=== PATIENT | female | born 1960 | race Caucasian/White ===

== ENCOUNTER 2021-02-25 12:48 | Observation (INO) | payer OTHER, SELFPAY ==
[2021-02-25] VITALS (19 sets, daily range): BP systolic 107–137; BP diastolic 58–77; PULSE 70–110; RESP 18–27; TEMP 36.1–37.8; O2SAT 96–100; BMI 24.9
--- NOTE | ~2021-02-25 | CT_ITS ---
EXAMINATION: CT abdomen pelvis wo con DATE: 02/25/2021 17:37 INDICATION: Right flank pain. TECHNIQUE: Computed tomography (CT) of the abdomen and pelvis was performed without intravenous contr ast. Automated exposure control and iterative reconstruction technique were employed. The dose-length product was 178.55 mGy-cm. COMPARISON: CT abdomen and pelvis 10/10/2018 FINDINGS: The visualized portions of the lung bases demonstrate mild atelectasis. No pleural effusion . The heart size is normal. No pericardial effusion. The liver, gallbladder, spleen, pancreas, and ad renal glands are normal. There are peripelvic cysts in the kidneys measuring up to 12 mm on the right . There is no urolithiasis. There are no dilated loops of bowel. The appendix is not visualized. Ther e are no pathologically enlarged lymph nodes. There is no free intraperitoneal fluid. 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 There is 4 mm anterolisthesis of L5 on S1. There is severe lower lumbar spondylosis. IMPRESSION: 1. No urolithiasis. Reviewed, dictated and finalized at location A. IMPRESSION: 1. No urolithiasis.
--- NOTE | ~2021-02-25 | XR_ITS ---
EXAMINATION: XR chest 1V portable DATE: 02/25/2021 19:13 INDICATION: Fever. Left lower back pain. TECHNIQUE: A single frontal view of the chest was obtained. COMPARISON: Chest 2 views 05/21/2013, CT abdomen and pelvis 02/25/2021 FINDINGS: The chest demonstrates clear lungs without pneumonia, pleural effusion, or pneumothorax. Th e heart size is normal. IMPRESSION: 1. No acute cardiopulmonary disease. Reviewed, dictated and finalized at location A.
[2021-02-25 13:26] LABS: Hematocrit 43.4 % (37.0-47.0); Hemoglobin 14.7 g/dL (12.0-15.0); Mean Corpuscular HGB Conc 33.9 g/dl (32-36); Mean Corpuscular Hemoglobin 28.3 pg (26-34); Mean Corpuscular Volume 83.6 fl (80-100); Mean Platelet Volume 10.2 fl (7.4-10.4); Platelet Count Result 231 k/mm3 (150-375); Red Blood Count 5.19 M/mm3 (4.2-5.4); Red Cell Distribution Width 12.8 % (11.5-14.5); White Blood Count 13.5 K/mm3 (4.5-10.0)
[2021-02-25 13:38] LABS: Alanine Aminotransferase 22 U/L (4-35); Albumin Level 4.6 g/dL (3.5-5.1); Alkaline Phosphatase 69 U/L (38-126); Anion Gap 15 mmol/L (8-16); Aspartate Amino Transferase 22 U/L (14-36); Bilirubin,Total 0.8 mg/dL (0.2-1.3); Blood Urea Nitrogen 13 mg/dL (7-17); Calcium 9.5 mg/dL (8.4-10.2); Carbon Dioxide 22 mmol/L (22-30); Chloride 96 mmol/L (98-107); Estimated CRCL calculation 52 ml/min; Estimated Glomerular Filt Rate > 60; Glucose 267 mg/dL (65-110); Lipase 42 U/L (23-300); Sodium 133 mmol/L (137-145)
[2021-02-25 14:03] LABS: Lymphocytes Absolute Manual 0.81 K/mm3 (1.1-4.5); Monocytes Absolute Manual 0.54 K/mm3 (0.1-0.90); Monocytes Percent Manual 4 % (3-9); Neutrophils Percent Manual 90 % (46-73); Platelet Estimate Adequate (Adequate); Total Cells Counted 100
[2021-02-25] MEDS: SODIUM CHLORIDE 0.9% IV 1,000 ML 999 ML IV CONT ×2 (14:49→18:02)
[2021-02-25 15:02] LABS: Add Urine Microscopic? YES; Appearance Urine Clear (Clear); Bilirubin Urine Negative (Negative); Blood Urine 1+ (Negative); Color Urine Yellow (Yellow); Glucose Urine UA 2+ mg/dL (Negative); Ketones Urine 1+ mg/dL (Negative); Leukocyte Esterase Ur 1+ LEU/UL (Negative); Mucus Urine Rare /lpf; Nitrate Urine Negative (Negative); Protein Urine Negative (Negative); Specific Grav Ur 1.021 (1.001-1.035); Squamous Epithelial Cell Urine Rare /hpf (Few); Urobilinogen Urine Negative mg/dL (<2.0)
[2021-02-25 16:23] LABS: EDCOVIDSCREEN Negative (Negative)
--- NOTE | 2021-02-25 17:33 | ED.GENADULT ---
HPI - General Adult General Chief complaint: Nausea/Vomiting/Diarrhea <Jacquie Sena PA-C - Last Filed: 02/25/21 20:07> Stated complaint: DOE/Weakness <Jacquie Sena PA-C - Last Filed: 02/25/21 20:07> Time Seen by Provider: 02/25/21 14:00 <COURTNEY Mason Last Filed: 02/25/21 20:07> Source: patient <COURTNEY Mason Last Filed: 02/25/21 20:07> Mode of arrival: ambulatory <COURTNEY Mason Last Filed: 02/25/21 20:07> Limitations: no limitations <COURTNEY Mason Last Filed: 02/25/21 20:07> History of Present Illness HPI narrative: Patient with diabetes presents with chief complaint of fatigue, nausea, vomiting abdominal pain that began this morning. Patient states she did not eat or drink anything that she can recall caused her symptoms. Patient states that she checked her blood sugar levels and it was 200. Patient states she has been drinking lots of water. Patient denies any fever, chills, cough, shortness of breath, chest pain. Patient denies being exposed to a known Covid positive person. <COURTNEY Mason Last Filed: 02/25/21 20:07> Related Data Home medications: Home Medications Medication Instructions Recorded Confirmed Januvia 100 mg PO DAILY 02/25/21 02/25/21 Lantus Solostar U-100 Insulin 18 unit SUBCUT 02/25/21 02/25/21 interferon beta-1a 30 mcg IM WEEKLY 02/25/21 02/25/21 lansoprazole 30 mg PO DAILY 02/25/21 02/25/21 simvastatin 40 mg PO HS 02/25/21 02/25/21 <COURTNEY Mason Last Filed: 02/25/21 20:07> Allergies/adverse reactions: Allergies Allergy/AdvReac Type Severity Reaction Status Date / Time mannitol [From Reclast] Allergy Severe Swelling Verified 02/25/21 22:16 water for injection,sterile Allergy Severe Swelling Verified 02/25/21 22:16 [From Reclast] zoledronic acid Allergy Severe Swelling Verified 02/25/21 22:16 [From Reclast] Penicillins Allergy Intermediate Rash Verified 02/25/21 22:16 <Jacquie Sena PA-C - Last Filed: 02/25/21 20:07> Review of Systems Review of Systems: CONSTITUTIONAL: Reports fatigue denies body aches, fever, chills, or sweats. EYES: Denies visual changes, redness, or discharge. ENT: Denies rhinorrhea, congestion, sore throat, or otalgia. CARDIOVASCULAR: Denies chest pain, palpitations, or edema. RESPIRATORY: Denies cough or dyspnea. GASTROINTESTINAL: Reports abdominal pain, nausea, vomiting, denies diarrhea. GENITOURINARY: Reports urinary frequency denies dysuria or hematuria. SKIN: Denies rash or itching. MUSCULOSKELETAL: Denies back pain, joint pain, or myalgia. NEUROLOGIC: Denies headache, numbness, dizziness, or weakness. PSYCHIATRIC: Denies anxiety or depression. <Jacquie Sena PA-C - Last Filed: 02/25/21 20:07> [facility]LY [facility], LAT[facility] Social History Social History: Social History Smoking status: Former smoker Alcohol intake: never Substance use: never Spiritual care concerns: No <Jacquie Sena PA-C - Last Filed: 02/25/21 20:07> Course Vital Signs Vital signs: Vital Signs Temperature 97.9 F 02/25/21 12:56 Pulse Rate 96 02/25/21 12:56 Respiratory Rate 18 02/25/21 12:56 Blood Pressure 120/62 02/25/21 12:56 Pulse Oximetry 96 02/25/21 12:56 Temperature 98.3 F 02/27/21 12:00 Pulse Rate 88 02/27/21 12:00 Respiratory Rate 16 02/27/21 12:00 Blood Pressure 114/59 L 02/27/21 12:00 Pulse Oximetry 97 02/27/21 12:00 <Jacquie Sena PA-C - Last Filed: 02/25/21 20:07> Vital Signs Temperature 97.9 F 02/25/21 12:56 Pulse Rate 96 02/25/21 12:56 Respiratory Rate 18 02/25/21 12:56 Blood Pressure 120/62 02/25/21 12:56 Pulse Oximetry 96 02/25/21 12:56 Temperature 98.3 F 02/27/21 12:00 Pulse Rate 88 02/27/21 12:00 Respiratory Rate 16 02/27/21 12:00 Blood Pressure 114/59 L 02/27/21 12:00 Pulse Oximetry 97 02/27/21 12:00 <Renu Clemens MD - Last Filed: 02/28/21 01:12>
[2021-02-25] MEDS: KETOROLAC 30 MG/ML VIAL (*BKC) IV PUSH (18:11)
--- NOTE | 2021-02-25 21:06 | PC.NURSE ---
This patient, Sita Chao, was admitted to [facility] Room 330-01 @21:05. Patient/family oriented to hospital policies and general routines including ID bracelet, bed and alarms, visiting hours, pain management, procedures, bathroom and other care routines, personal items, smoking policy, room service/diet, and visiting hours. Information on how to activate the Rapid Response Team has been discussed. Patient/Family are encouraged to report perceived risks to care and to ask questions if they do not understand what they are told or what they should do.
--- NOTE | 2021-02-25 21:24 | PC.NURSE ---
20:53 Report received from IZZY Carbone RN. Awaiting patient arrival to floor.
[2021-02-26] VITALS: BP 109/63; PULSE 86; RESP 18; TEMP 36.2; O2SAT 98
--- NOTE | 2021-02-26 00:19 | PM.IMHP ---
H&P: HPI History of Present Illness Date/Time: 02/26/21 00:19 Chief Complaint: Nausea and vomiting Narrative: This is a 60-year-old female with past medical history significant for insulin-dependent diabetic mellitus, GERD, dyslipidemia, former smoker. Patient presented today to the emergency room due to nausea vomiting abdominal pain unable to keep anything down feeling very weak and fatigued. Her sugars have been in the 200 range. Everything started today in the morning and she called EMS due to having nausea and vomiting not been able to eat and her sugars been in the 200's. She denies any fevers rigors chills pain or burning with urination no cough no sputum production no syncope or near syncope. Preliminary workup was significant for sodium of 132 chloride of 90, a urinalysis shows some WBCs of note patient had been taking nitrofurantoin at home, a CT of abdomen and pelvis did not show any acute abnormality. Patient has been placed in observation. Review of Systems Review of Systems: Patient presented to the emergency room due to nausea vomiting abdominal pain sugars in the 200s not been able to eat. Constitutional: Constitutional: Denies chills, Reports fatigue, Denies fever(s), Reports lethargy, Denies malaise, Reports poor appetite and Reports weakness Eyes: Eyes: Denies change in vision ENT: Denies dysphagia, Denies vertigo, Denies dizziness, Denies mouth pain, Denies nasal congestion, Denies nasal discharge, Denies nasal obstruction and Denies odynophagia Cardiovascular: Cardiovascular: Denies irregular heart rhythm, Denies lightheadedness, Denies radiating jaw, neck or arm pain, Denies palpitations and Denies dyspnea on exertion Respiratory: Respiratory: Denies cough and Denies dyspnea Gastrointestinal: Gastrointestinal: Reports abdominal pain, Denies dyspepsia, Denies heartburn, Reports nausea and Reports vomiting Genitourinary: Genitourinary: Reports no additional female genitourinary complaints Musculoskeletal: Musculoskeletal: Reports no additional musculoskeletal complaints Integumentary/Breasts: Skin/Breast: Reports system reviewed and no additional complaints, except as docu Neurologic: Reports system reviewed and no additional complaints, except as documented Psychiatric: Psychiatric: Reports no additional psychiatric complaints Endocrine: Comments: Uncontrolled sugars Hematologic/Lymphatic: Hematologic/Lymphatic: Reports no additional hematologic/lymphatic complaints Allergic/Immunologic: Allergic/Immunologic: Reports no additional allergic/immunologic complaints FORMERLY [facility] Social History Social History Smoking status: Former smoker Alcohol intake: never Substance use: never Spiritual care concerns: No Meds Home Medications and Allergies Home Medications Medication Instructions Recorded Confirmed Type insulin glargine [Lantus Solostar 18 unit SUBCUT HS 02/25/21 02/25/21 History U-100 Insulin] interferon beta-1a 30 mcg IM WEEKLY 02/25/21 02/25/21 History lansoprazole 30 mg PO DAILY 02/25/21 02/25/21 History nitrofurantoin monohyd/m-cryst 100 mg PO BID 02/25/21 02/25/21 History simvastatin 40 mg PO HS 02/25/21 02/25/21 History sitagliptin [Januvia] 100 mg PO DAILY 02/25/21 02/25/21 History Allergies Allergy/AdvReac Type Severity Reaction Status Date / Time mannitol [From Reclast] Allergy Severe Swelling Verified 02/25/21 22:16 water for injection,sterile Allergy Severe Swelling Verified 02/25/21 22:16 [From Reclast] zoledronic acid Allergy Severe Swelling Verified 02/25/21 22:16 [From Reclast] Penicillins Allergy Intermediate Rash Verified 02/25/21 22:16 Vital Signs Vital Signs - 24 hr 02/25/21 12:56 02/25/21 13:57 02/25/21 15:31 Temperature 97.9 F 98.8 F Pulse Rate 96 108 H 106 H Respiratory Rate 18 18 24 H Blood Pressure 120/62 133/77 130/68 Pulse Oximetry 96 100 100 02/25/21 15:46 02/25/21 15:48 02/25/21 15:50 Temperature Pulse Rate 104 H 105 H 1
[2021-02-26] MEDS: INSULIN GLARGINE (*BKC) 100 UNITS/ML 18 UNITS SUB-Q ×2 (01:21→20:18)
[2021-02-26] MEDS: SIMVASTATIN 20 MG TABLET 40 MG PO ×2 (01:21→20:19)
[2021-02-26 01:25] LABS: Glucose Point of Care 269 mg/dl (65-105)
[2021-02-26 04:00] VITALS: BP 116/66; PULSE 97; RESP 18; TEMP 36.6; O2SAT 99
[2021-02-26] MEDS: ENOXAPARIN 40 MG/0.4 ML SYRINGE SUB-Q (09:00)
[2021-02-26] MEDS: NITROFURANTOIN MONOHYD MACROCR 100 MG CAP PO (09:00)
[2021-02-26] MEDS: INSULIN ASPART (*BKC) 100 UNITS/ML SUB-Q ×2 (09:01→12:13)
[2021-02-26 09:08] LABS: Glucose Point of Care 237 mg/dl (65-105)
[2021-02-26] MEDS: LANSOPRAZOLE ORAL SUSP 30 MG/10 ML ORAL.SUSP PO (09:08)
[2021-02-26 09:30] VITALS: BP 114/58; PULSE 88; RESP 18; TEMP 36.9; O2SAT 97
[2021-02-26] MEDS: KETOROLAC 15 MG/ML VIAL (*BKC) IV PUSH (10:41)
[2021-02-26] MEDS: ONDANSETRON INJ 4 MG/2 ML VIAL IV PUSH (10:41)
[2021-02-26 12:04] VITALS: BP 107/67; PULSE 69; RESP 16; TEMP 36.5; O2SAT 97
[2021-02-26 12:31] LABS: Glucose Point of Care 218 mg/dl (65-105)
--- NOTE | 2021-02-26 13:54 | PM.IMPN ---
Progress Note: A&P Assessment and Plan (1) Altered mental status: Code(s): R41.82 - Altered mental status, unspecified Status: Acute Assessment and Plan: Patient states she has been dealing with recurrent urinary tract infections for the last year so. She has seen a urologist as an outpatient but has not followed up in a while. She reports going to [place] [facility] about 2 weeks ago and being told she had a urinary tract infection placed on Macrobid. She has been taking his medications but has noticed her sugars been going up, generalized weakness, nausea, headache, and yesterday had fevers and chills and had some confusion and was very fatigued. She called her friend who was concerned and called 911. EMS checked on her and she decided to come to the emergency room for further evaluation. Patient's urinalysis showed 1+ leukocyte esterase and wbc's 4-6. She was started on IV Rocephin for possible recurrent/continued UTI. Urine Culture is pending at this time Blood cultures show no growth at this time Patient is feeling back to her baseline today, still slight nausea but otherwise back to normal. Patient is also being swabbed for COVID-19 at this time due to generalized symptoms which could be due to a viral illness. She is COVID vaccinated. Continue symptomatic treatment. Continue monitoring. IV antibiotics for possible uti. (2) UTI (urinary tract infection): Code(s): N39.0 - Urinary tract infection, site not specified Status: Acute Assessment and Plan: Patient was recently at [facility] and diagnosed with the UTI and discharged on Macrobid. She has been taking medications but continued to have symptoms so she came to the emergency room. Switched to IV Rocephin. Now pending urine culture results. She is feeling better today so believed current regimen is working. She will need to follow-up with her urologist for further evaluation due to recurrent urinary tract infections. (3) Nausea and vomiting: Code(s): R11.2 - Nausea with vomiting, unspecified Status: Acute Assessment and Plan: Could be from UTI verses elevated glucose versus COVID Still having slight nausea will continue p.r.n. Mikie Will advance diet to diabetic Continue monitoring (4) Insulin dependent diabetes mellitus: Status: Acute Assessment and Plan: Glucose at lunch was 218. Continue insulin glargine from home Insulin sliding scale as needed. Accu-Cheks AC and HS. Holding in sitagliptin. Hypoglycemic protocol in place. Time Spent With Patient Time with patient: 25 - 35 minutes Subjective Date/time seen: 02/26/21 13:54 Interval history: Date of Service 02/26/21: He reports feeling better today. States yesterday she was very confused But today she is back to normal.She still has some slight nausea. But eating and drinking without issues. She denies any fevers, chills which she had had yesterday. She does report some upper chest discomfort with taking a deep breath as well as some dry cough when taking a deep breath. She denies any shortness of breath at rest or with exertion. Denies any vomiting, abdominal pain, leg swelling, calf pain, or any other symptoms at time. Review of Systems Review of Systems: All systems reviewed & are unremarkable except as noted in HPI and below Exam Narrative: General: 60-year-old man sitting up on the side of the bed. Appears comfortable. In no acute distress. Skin: No jaundice or cyanosis. Good skin turgor. Neck: Full range of motion. Supple. Respiratory: Lungs are clear to auscultation bilaterally. No bony chest wall tenderness. Cardiovascular: The heart has a regular rate and rhythm without murmur. Lower extremities: No lower e
[2021-02-26] MEDS: ACETAMINOPHEN 325 MG TABLET 650 MG PO (14:26)
[2021-02-26 16:58] VITALS: BP 116/69; PULSE 67; RESP 18; TEMP 36.8; O2SAT 100
[2021-02-26 17:04] LABS: Glucose Point of Care 158 mg/dl (65-105)
[2021-02-26 18:14] LABS: SARS-CoV-2 RNA PCR Negative
[2021-02-26 20:00] VITALS: BP 108/62; PULSE 73; RESP 16; TEMP 36.3; O2SAT 99
[2021-02-26 20:58] LABS: Glucose Point of Care 197 mg/dl (65-105)
[2021-02-27 04:00] VITALS: BP 107/63; PULSE 70; RESP 16; TEMP 36.2; O2SAT 98
[2021-02-27] MEDS: ACETAMINOPHEN 325 MG TABLET 650 MG PO (04:40)
[2021-02-27] MEDS: ONDANSETRON INJ 4 MG/2 ML VIAL IV PUSH (04:40)
[2021-02-27 07:36] LABS: Glucose Point of Care 120 mg/dl (65-105)
[2021-02-27] MEDS: ENOXAPARIN 40 MG/0.4 ML SYRINGE SUB-Q (07:53)
[2021-02-27] MEDS: LANSOPRAZOLE ORAL SUSP 30 MG/10 ML ORAL.SUSP PO (07:53)
[2021-02-27 08:00] VITALS: BP 119/67; PULSE 86; RESP 16; TEMP 36.6; O2SAT 99
[2021-02-27 09:51] LABS: Hemoglobin 11.6 g/dL (12.0-15.0); Mean Corpuscular HGB Conc 33.1 g/dl (32-36); Mean Corpuscular Hemoglobin 28.4 pg (26-34); Mean Corpuscular Volume 85.6 fl (80-100); Platelet Count Result 199 k/mm3 (150-375); Red Blood Count 4.09 M/mm3 (4.2-5.4); Red Cell Distribution Width 13.2 % (11.5-14.5); White Blood Count 5.7 K/mm3 (4.5-10.0)
[2021-02-27 10:10] LABS: Anion Gap 6 mmol/L (8-16); Blood Urea Nitrogen 11 mg/dL (7-17); Calcium 8.9 mg/dL (8.4-10.2); Carbon Dioxide 26 mmol/L (22-30); Chloride 105 mmol/L (98-107); Estimated CRCL calculation 71 ml/min; Estimated Glomerular Filt Rate > 60; Glucose 217 mg/dL (65-110); Potassium 4.4 mmol/L (3.4-5.0); Sodium 137 mmol/L (137-145)
[2021-02-27 11:38] LABS: Glucose Point of Care 186 mg/dl (65-105)
--- NOTE | 2021-02-27 11:54 | PM.DS ---
DS: Admitting Diagnosis Admitting Diagnosis Fatigue DS: Discharge Diagnosis Discharge Diagnosis (1) Altered mental status: Code(s): R41.82 - Altered mental status, unspecified Status: Acute Assessment and Plan: Patient is a 60-year-old woman with a history diabetes, dyslipidemia, who presented emergency room with some confusion, weakness, fatigue for the last few days. She also has associated nausea, vomiting, headache. Patient states she has been dealing with recurrent urinary tract infections for the last year so. She has seen a urologist as an outpatient but has not followed up in a while. She reports going to [facility] [facility] about 2 weeks ago and being told she had a urinary tract infection placed on Macrobid. She has been taking his medications but has noticed her sugars been going up, generalized weakness, nausea, headache, and yesterday had fevers and chills and had some confusion and was very fatigued. She called her friend who was concerned and called 911. EMS checked on her and she decided to come to the emergency room for further evaluation. Initial vital signs showed blood pressure stable at 120/62, heart rate 96, afebrile, normal oxygenation on room air. Initial labs showed leukocytosis at 13,500, with elevated neutrophils at 90%, hyponatremia at 133, normal renal function, glucose elevated at 267. Normal LFTs and lipase. Patient's urinalysis showed 1+ leukocyte esterase and wbc's 4-6. Which is not too concerning for a urinary tract infection but since she was knocking better on her Macrobid and having worsening symptoms IV antibiotics with Rocephin were started. Urine culture returned showing no growth. The patient continued getting better on IV Rocephin. The patient was negative for COVID-19. Blood cultures show no growth at this time Patient is feeling back to her baseline today without any concerns or issues. Stable for discharge at this time to continue on cefdinir b.i.d. for 5 more days. Probiotic. Instructed to follow-up with primary care provider and Urology for further evaluation of recurring urinary tract infections. 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 (2) UTI (urinary tract infection): Code(s): N39.0 - Urinary tract infection, site not specified Status: Acute Assessment and Plan: (3) Nausea and vomiting: Code(s): R11.2 - Nausea with vomiting, unspecified Status: Acute Assessment and Plan: (4) Insulin dependent diabetes mellitus: Status: Acute Assessment and Plan: DS: Summary Hospital Course Hospital Course: See above Status at Discharge Cognitive/behavioral status at discharge: Stable, improved. Time Spent with Patient Time attestation: Total time spent providing and/or coordinating discharge services: 42 Time spent: Greater than 30 minutes Exam Narrative: General: 60-year-old woman sitting up in bed texting on her phone. Appears comfortable. In no acute distress. Skin: No jaundice or cyanosis. Good skin turgor. Neck: Full range of motion. Supple. Respiratory: Lungs are clear to auscultation bilaterally. No bony chest wall tenderness. Cardiovascular: The heart has a regular rate and rhythm without murmur. Lower extremities: No lower extremity edema. Distal pulses are easily palpated. No calf tenderness to palpation. Gastrointestinal: The abdomen is soft, nontender and nondistended with active bowel sounds. Psychiatric: Lucid and oriented. Memory intact. Neurologic: No focal deficits. Speech is clear. No facial drooping. DS: Data Data Completed and Pending Labs on day of discharge: Labs from last 24 hours 02/27/21 02/27/21 02/27/21
[2021-02-27 12:00] VITALS: BP 114/59; PULSE 88; RESP 16; TEMP 36.8; O2SAT 97
== END 2021-02-27 14:25 | disposition home or self-care (01) ==
LOC: ANHED 20:07 → ANH3MEDSUR 20:46
PROVIDERS: Emergency Medicine; Physician Assistant; Admitting Provider Internal Medicine; Emergency Provider General Practice; Visit Provider Internal Medicine
DX: R41.82 Altered mental status, unspecified (principal); N39.0 Urinary tract infection, site not specified; R11.2 Nausea with vomiting, unspecified; E86.0 Dehydration; R10.9 Unspecified abdominal pain; E11.9 Type 2 diabetes mellitus without complications; E78.5 Hyperlipidemia, unspecified; K21.9 Gastro-esophageal reflux disease without esophagitis; Z79.4 Long term (current) use of insulin; Z87.891 Personal history of nicotine dependence; Z20.822 Contact with and (suspected) exposure to COVID-19
CPT/HCPCS: 36415; 51701; 71045; 74176; 80048; 80053; 81001; 82948; 83690; 85025; 85027; 87040; 87086; 87426; 96361; 96372; 96374; 96375; 96376; 99285; A9270; C9803; G0378; J0131; J0696; J1650; J1815; J1885; J2405; J7030; U0003; U0005

== ENCOUNTER 2021-03-20 22:56 | Observation (INO) | payer MEDICARE, SELFPAY ==
[2021-03-20] VITALS (7 sets, daily range): BP systolic 149–182; BP diastolic 79–82; PULSE 113–123; RESP 18–28; TEMP 37.9; O2SAT 92–95
--- NOTE | ~2021-03-20 | CT_ITS ---
EXAMINATION: CT brain wo con EXAM DATE: 03/21/2021 01:12 INDICATION: Altered mental status. Headache, fever. TECHNIQUE: Spiral CT of the head was performed without contrast. Axial, coronal and sagittal images were reviewed. The dose-length product (DLP) for this examination was 605.33 mGy-cm. The exposure w as tailored according to patient size, and iterative reconstruction (ASIR) was used as additional dos e reduction technique. Comparison is made to prior examination from 09/12/2018. FINDINGS: There is no acute intraparenchymal hemorrhage. No evidence of intraparenchymal brain mass lesion. No evidence of acute infarction. Please note that initial head CT has limited sensitivity f or small or acute infarctions. There is moderate periventricular and subcortical hypodensity, nonspec ific but probably related to small vessel ischemic disease. There is mild prominence of the sulci a nd ventricles related to cerebral atrophy. There is intracranial carotid arteriosclerosis. There a re no extra-axial collections. There is no mass effect or midline shift. The orbits are unremarkabl e. Soft tissue is unremarkable. The visualized sinuses and mastoid air cells are well aerated. IMPRESSION: 1. No acute intracranial findings. 2. Chronic age related findings. Reviewed, dictated and finalized at location A.
--- NOTE | ~2021-03-20 | CT_ITS ---
EXAMINATION: CT chest abdomen pelvis wo con EXAM DATE: 03/21/2021 01:12 INDICATION: Left flank pain, confusion and weakness nausea and vomiting. TECHNIQUE: Spiral CT of the chest, abdomen and pelvis was performed without contrast. Axial, keller l and sagittal images chest, abdomen and pelvis were reviewed. Coronal maximum intensity pixel image s of chest reviewed. The dose-length product (DLP) for this examination was 458.08 mGy-cm. The expo sure was tailored according to patient size (auto mA exposure control), and iterative reconstruction (ASIR) was used as additional dose reduction technique. Comparison is made to prior examination from 10/10/2018, 02/26/2020 [place]. FINDINGS: CHEST: Some dependent predominant interlobular septal thickening, distribution suggests this could b e some combination of atelectasis and/or mild pulmonary edema. Heart is normal in size. There are no pleural or pericardial effusions. Tracheobronchial tree is patent. There is no mediastinal, florence r or axillary lymphadenopathy. There is no pneumothorax. No evidence of coronary arterial calcifi cation. ABDOMEN PELVIS: The liver, spleen, adrenal glands and pancreas are unremarkable. Gallbladder is unre markable. No biliary obstruction. There is no nephrolithiasis or hydronephrosis. There are probably bilateral renal peripelvic cysts. The uterus is unremarkable. The bladder is unremarkable. There is no retroperitoneal or pelvic lymphadenopathy. There is mild scattered arteriosclerotic disease. The appendix is not positively visualized. There is no pericecal inflammatory change to suggest appe ndicitis. The stomach and small bowel are unremarkable. There is expected amount of colonic stool. No free intraperitoneal gas. There are no osteoblastic or osteolytic lesions identified. Bilater al L5 spondylolysis with grade 1 anterolisthesis L5 on S1. IMPRESSION: 1. Mild dependent basilar intralobular septal thickening, atelectasis an/or mild pulmonary edema. 2. Renal peripelvic cysts. No nephrolithiasis, hydronephrosis or acute intra-abdominal findings. Reviewed, dictated and finalized at location A. IMPRESSION: 1. Mild dependent basilar intralobular septal thickening, atelectasis an/or mi ld pulmonary edema. 2. Renal peripelvic cysts. No nephrolithiasis, hydronephrosis or acute intra-a bdominal findings.
--- NOTE | 2021-03-20 23:17 | ECG_ITS ---
Measurements Intervals [place] Rate: 116 P: 45 MD: 132 QRS: -22 QRSD: 88 T: 68 QT: 313 QTc: 436 Interpretive Statements SINUS TACHYCARDIA DELAYED PRECORDIAL R/S TRANSITION BASELINE WANDER- V6 ABNORMAL ECG Electronically Signed On 03-21-2021 7:59:41 CDT by Oscar Perez D.O.
--- NOTE | 2021-03-20 23:36 | ED.AMS ---
HPI - Altered Mental Status General Chief Complaint: Altered Mental Status <Dexter Greco MD - Last Filed: 03/20/21 23:52> Stated Complaint: AMS/ lethargic <Dexter Greco MD - Last Filed: 03/20/21 23:52> Time Seen by Provider: 03/20/21 23:20 <Dexter Greco MD - Last Filed: 03/20/21 23:52> Source: patient <Dexter Greco MD - Last Filed: 03/20/21 23:52> Mode of arrival: ambulatory <Dexter Greco MD - Last Filed: 03/20/21 23:52> Limitations: no limitations <Dexter Greco MD - Last Filed: 03/20/21 23:52> History of Present Illness HPI narrative: Patient is a 60-year-old female complaining of nausea, vomiting and fever. Patient was found on the floor with altered level of consciousness by her friend tucker. Patient currently on oral antibiotics due to urinary tract infection. Patient denies any headache, speech or visual disturbance, focal weakness or numbness, chest pain, shortness of breath or diarrhea. <Dexter Greco MD - Last Filed: 03/20/21 23:52> Related Data Home Medications: Home Medications Medication Instructions Recorded Confirmed Januvia 100 mg PO DAILY 02/25/21 02/25/21 Lantus Solostar U-100 Insulin 18 unit SUBCUT HS 02/25/21 02/25/21 interferon beta-1a 30 mcg IM WEEKLY 02/25/21 02/25/21 lansoprazole 30 mg PO DAILY 02/25/21 02/25/21 simvastatin 40 mg PO HS 02/25/21 02/25/21 <Dexter Greco MD - Last Filed: 03/20/21 23:52> Allergies/Adverse Reactions: Allergies Allergy/AdvReac Type Severity Reaction Status Date / Time mannitol [From Reclast] Allergy Severe Swelling Verified 03/20/21 23:52 water for injection,sterile Allergy Severe Swelling Verified 03/20/21 23:52 [From Reclast] zoledronic acid Allergy Severe Swelling Verified 03/20/21 23:52 [From Reclast] Penicillins Allergy Intermediate Rash Verified 03/20/21 23:52 <Dexter Greco MD - Last Filed: 03/20/21 23:52> Review of Systems Review of Systems: All systems reviewed & are unremarkable except as noted in HPI and below <Dexter Greco MD - Last Filed: 03/20/21 23:52> Constitutional: Constitutional: Denies excessive sweating, Denies headache(s) and Denies weight loss <Dexter Greco MD - Last Filed: 03/20/21 23:52> Eyes: Eyes: Denies blurry vision, Denies change in vision and Denies loss of vision <Dexter Greco MD - Last Filed: 03/20/21 23:52> ENT: Denies dizziness, Denies ear discharge, Denies headache(s), Denies lip swelling, Denies epistaxis, Denies nasal congestion, Denies neck pain, Denies throat swelling and Denies tongue swelling <Dexter Greco MD - Last Filed: 03/20/21 23:52> Cardiovascular: Cardiovascular: Denies chest pain, Denies chest pain at rest, Denies chest pain with activity, Denies diaphoresis, Denies rapid heart rate, Denies edema, Denies irregular heart rhythm, Denies lightheadedness, Denies palpitations, Denies dyspnea and Denies dyspnea on exertion <Dexter Greco MD - Last Filed: 03/20/21 23:52> Respiratory: Respiratory: Denies chest congestion, Denies cough, Denies hemoptysis, Denies dyspnea and Denies dyspnea on exertion <Dexter Greco MD - Last Filed: 03/20/21 23:52> Gastrointestinal: Gastrointestinal: Denies abdominal pain, Denies melena, Denies hematochezia, Denies diarrhea and Denies hematemesis <Dexter Greco MD - Last Filed: 03/20/21 23:52> Musculoskeletal: Musculoskeletal: Denies abnormal gait, Denies deformity, Denies joint swelling, Denies limited range of motion, Denies neck pain and Denies numbness <Dexter Greco MD - Last Filed: 03/20/21 23:52> Neurologic: Denies Abnormal speech present, Denies abnormal gait, Denies confusion, Denies dizziness, Denies headache(s), Denies focal weakness, Denies loss of vision, Denies numbness, Denies Other visual disturbances and Denies Sensory deficit (Neuro) <Dexter Greco MD - Last Filed: 03/20/21 23:52> Psychiatric: Psychiatr
[2021-03-20 23:57] LABS: Glucose Point of Care 204 mg/dl (65-105)
[2021-03-20 23:59] LABS: Basophils Percent Auto 0.3 % (0.2-1.2); Eosinophils Absolute Auto 0.4 K/mm3 (0-0.3); Eosinophils Percent Auto 3.7 % (0-4.4); Hematocrit 43.1 % (37.0-47.0); Hemoglobin 14.9 g/dL (12.0-15.0); Immature Granulocyte Absolute 0.05 K/mm3 (0.00-0.031); Immature Granulocyte Percent A 0.5 % (0-0.5); Lymphocytes Percent Auto 4.9 % (18.3-44.2); Mean Corpuscular HGB Conc 34.6 g/dl (32-36); Mean Corpuscular Hemoglobin 28.8 pg (26-34); Mean Corpuscular Volume 83.4 fl (80-100); Mean Platelet Volume 10.5 fl (7.4-10.4); Monocytes Absolute Auto 0.4 K/mm3 (0.1-0.6); Monocytes Percent Auto 4.2 % (2.6-8.5); Neutrophils Absolute Auto 8.8 K/mm3 (1.3-6.7); Neutrophils Percent Auto 86.4 % (45.5-73.1); Platelet Count Result 188 k/mm3 (150-375); Red Blood Count 5.17 M/mm3 (4.2-5.4); Red Cell Distribution Width 12.9 % (11.5-14.5); White Blood Count 10.2 K/mm3 (4.5-10.0)
[2021-03-21] VITALS (24 sets, daily range): BP systolic 99–146; BP diastolic 62–75; PULSE 79–119; RESP 16–28; TEMP 36.3–38.6; O2SAT 91–100; BMI 25.0
[2021-03-21 00:04] LABS: Add Urine Microscopic? YES; Appearance Urine Clear (Clear); Bilirubin Urine Negative (Negative); Blood Urine 3+ (Negative); Color Urine Yellow (Yellow); Glucose Urine UA 1+ mg/dL (Negative); Ketones Urine Trace mg/dL (Negative); Leukocyte Esterase Ur Negative LEU/UL (Negative); Mucus Urine Rare /lpf; Nitrate Urine Negative (Negative); Protein Urine Negative (Negative); Urobilinogen Urine Negative mg/dL (<2.0); WBC Urine 0-3 /hpf
[2021-03-21 00:09] LABS: Prothrombin Time 12.7 Seconds (11.1-14.7)
[2021-03-21 00:10] LABS: Partial Thromboplastin Time 28.8 SECONDS (22.3-36.8)
[2021-03-21 00:16] LABS: Alanine Aminotransferase 23 U/L (4-35); Albumin Level 4.4 g/dL (3.5-5.1); Alkaline Phosphatase 65 U/L (38-126); Anion Gap 9 mmol/L (8-16); Aspartate Amino Transferase 24 U/L (14-36); Bilirubin,Total 0.9 mg/dL (0.2-1.3); Blood Urea Nitrogen 9 mg/dL (7-17); Carbon Dioxide 27 mmol/L (22-30); Chloride 99 mmol/L (98-107); Estimated CRCL calculation 71 ml/min; Estimated Glomerular Filt Rate > 60; Glucose 199 mg/dL (65-110); Potassium 3.4 mmol/L (3.4-5.0); Sodium 135 mmol/L (137-145)
[2021-03-21 00:18] LABS: Lactic Acid Reflex 1.9 mmol/L (0.7-2.1)
[2021-03-21 00:22] LABS: Alveolar/Arterial O2 Gradient 48.4 mmHg; Base Excess ABG 1.8 mEq/l (+/-2.0); Carboxyhemoglobin 0.9 % THb (0-2.0); Fractional Inspired Oxygen 21 %; HCO3 ABG 24.7 mEq/l (22.0-26.0); Methemoglobin ABG 0.3 %THb (0-1.5); Oxygen Content ABG 17.5 %vol (16.0-22.0); Oxygen Saturation ABG 93.3 % (95.0-100.0); Oxyhemoglobin 91.5 % THb (90.0-100.0); PCO2 ABG 33.6 mmHg (35.0-45.0); PO2 ABG 61.1 mmHg (80.0-100.0); PO2 FiO2 Ratio Arterial Blood 2.91 %; Reduced Hemoglobin 7.3 %THb (0-5.0); Total Hemoglobin 13.6 g/dL (12.0-18.0); pH ABG 7.485 (7.350-7.450)
[2021-03-21 00:24] LABS: Device ROOM AIR; Modified Allen's Test Pass; Site Drawn LEFT RADIAL
[2021-03-21 00:32] LABS: CRP 8.8 mg/dL (<1.0)
[2021-03-21] MEDS: SODIUM CHLORIDE 0.9% IV 1,000 ML 125 ML IV CONT ×2 (04:52→17:28)
--- NOTE | 2021-03-21 05:29 | PM.IMHP ---
H&P: HPI History of Present Illness Date/Time: 03/21/21 05:29 Chief Complaint: Altered mental status Narrative: Patient is a 60-year-old female who presents to the ED after she is noted to be altered by her friend last evening. She was recently diagnosed with urinary tract infection and was placed on cefdinir which she is about to finish. She states he has been having on and off urinary tract infection since several months. She denies any chest pain shortness of breath or diarrhea or focal weakness or numbness speech or visual disturbance or headaches. She does complain of nausea vomiting and fever and was noted to be febrile in the ED yesterday. She has a underlying history of multiple sclerosis, diabetes and hyperlipidemia. ED evaluation showed UA at some red blood cells but no marker of infection. CT abdomen chest and head findings were reviewed which showed new infiltrates in her bilateral lower lungs. She is noted to have mild leukocytosis at 10.2. She is admitted under observation status for further evaluation and manage Review of Systems Review of Systems: - CONSTITUTIONAL: Denies weight loss, reports fever and chills. - HEENT: Denies changes in vision and hearing - RESPIRATORY: Denies SOB and cough. - CV: Denies palpitations and CP. - GI: Reports abdominal pain, nausea, vomiting and denies diarrhea. - : Denies dysuria and urinary frequency. - MSK: Denies myalgia and joint pain. - SKIN: Denies rash and pruritus. - NEUROLOGICAL: Denies headache and syncope. - PSYCHIATRIC: Denies recent changes in mood. Denies anxiety and depression. All systems reviewed & are unremarkable except as noted in HPI and below Constitutional: Constitutional: Reports fatigue and Reports weakness Neurologic: Reports weakness Endocrine: Endocrine: Reports fatigue [facility] Family History Family History (Updated 03/21/21 @ 04:40 by Mago Ugalde RN) Mother Diabetes mellitus Social History Social History Smoking packs per day: 1 Smoking cigarettes per day: 20.0 Years smoked: 1 Smoking pack-years: 1.00 Smoking status: Former smoker Tobacco type: cigarettes Alcohol intake: never Substance use: never Spiritual care concerns: No Meds Home Medications and Allergies Home Medications Medication Instructions Recorded Confirmed Type Januvia 100 mg PO DAILY 02/25/21 03/21/21 History Lantus Solostar U-100 Insulin 18 unit SUBCUT HS 02/25/21 03/21/21 History interferon beta-1a 30 mcg IM WEEKLY 02/25/21 03/21/21 History lansoprazole 30 mg PO DAILY 02/25/21 03/21/21 History simvastatin 40 mg PO HS 02/25/21 03/21/21 History Saccharomyces boulardii [Florastor] 250 mg PO BID #14 cap 02/27/21 03/21/21 Rx alendronate 70 mg PO DAILY 03/21/21 03/21/21 History insulin aspart U-100 [Novolog See Rx Instructions .ROUTE .COMPLEX 03/21/21 03/21/21 History Flexpen U-100 Insulin] modafinil [Provigil] 100 mg PO DAILY 03/21/21 03/21/21 History Allergies Allergy/AdvReac Type Severity Reaction Status Date / Time mannitol [From Reclast] Allergy Severe Swelling Verified 03/20/21 23:52 water for injection,sterile Allergy Severe Swelling Verified 03/20/21 23:52 [From Reclast] zoledronic acid Allergy Severe Swelling Verified 03/20/21 23:52 [From Reclast] Penicillins Allergy Intermediate Rash Verified 03/20/21 23:52 Vital Signs Vital Signs - 24 hr 03/20/21 22:56 03/20/21 23:02 03/20/21 23:15 Temperature 100.3 F H Pulse Rate 123 H 118 H Respiratory Rate 18 Blood Pressure 182/82 H 154/80 H Pulse Oximetry 93 94 93 03/20/21 23:16 03/20/21 23:30 03/20/21 23:31 Temperature Pulse Rate 119 H 116 H 119 H Respiratory Rate Blood Pressure 149/79 H Pulse Oximetry 92 95 93 03/20/21 23:45 03/21/21 00:00 03/21/21 00:01 Temperature Pulse Rate 113 H 116 H 117 H Respiratory Rate 28 H 27 H 25 H Blood Pressure 146/75 H Pulse Oximetry 92 92 92 03/21/21 00:15 03/21/21 00:16 03/21/21
[2021-03-21 08:16] LABS: Glucose Point of Care 225 mg/dl (65-105)
[2021-03-21] MEDS: INSULIN ASPART (*BKC) 100 UNITS/ML SUB-Q ×3 (09:42→17:01)
[2021-03-21] MEDS: PANTOPRAZOLE 40 MG TABLET PO (09:42)
[2021-03-21] MEDS: SACCHAROMYCES BOULARDII 250 MG CAPSULE PO ×2 (09:42→17:01)
[2021-03-21] MEDS: ALENDRONATE SODIUM 70 MG TABLET PO (09:45)
[2021-03-21] MEDS: modafiniL (*CRX) 100 MG TABLET PO (09:49)
[2021-03-21 11:54] LABS: Glucose Point of Care 264 mg/dl (65-105)
[2021-03-21 16:54] LABS: Glucose Point of Care 272 mg/dl (65-105)
[2021-03-21] MEDS: SIMVASTATIN 20 MG TABLET 40 MG PO (21:21)
[2021-03-21] MEDS: INSULIN GLARGINE (*BKC) 100 UNITS/ML 18 UNITS SUB-Q (21:23)
[2021-03-22 00:24] LABS: Glucose Point of Care 267 mg/dl (65-105)
[2021-03-22] MEDS: SODIUM CHLORIDE 0.9% IV 1,000 ML 125 ML IV CONT ×3 (01:45→19:52)
[2021-03-22 05:11] VITALS: BP 132/73; PULSE 86; RESP 16; TEMP 36.1; O2SAT 100
[2021-03-22 07:47] LABS: Glucose Point of Care 226 mg/dl (65-105)
[2021-03-22 08:02] LABS: Hematocrit 32.8 % (37.0-47.0); Mean Corpuscular HGB Conc 33.5 g/dl (32-36); Mean Corpuscular Hemoglobin 29.5 pg (26-34); Mean Corpuscular Volume 87.9 fl (80-100); Mean Platelet Volume 9.8 fl (7.4-10.4); Platelet Count Result 158 k/mm3 (150-375); Red Blood Count 3.73 M/mm3 (4.2-5.4); Red Cell Distribution Width 13.2 % (11.5-14.5); White Blood Count 5.7 K/mm3 (4.5-10.0)
[2021-03-22 08:06] VITALS: BP 126/76; PULSE 66; RESP 16; TEMP 36; O2SAT 99
[2021-03-22] MEDS: modafiniL (*CRX) 100 MG TABLET PO (08:08)
[2021-03-22] MEDS: SACCHAROMYCES BOULARDII 250 MG CAPSULE PO ×2 (08:08→17:06)
[2021-03-22] MEDS: INSULIN ASPART (*BKC) 100 UNITS/ML SUB-Q ×2 (08:08→12:10)
[2021-03-22] MEDS: PANTOPRAZOLE 40 MG TABLET PO (08:08)
[2021-03-22 08:14] LABS: Anion Gap 7 mmol/L (8-16); Blood Urea Nitrogen 9 mg/dL (7-17); Calcium 8.1 mg/dL (8.4-10.2); Carbon Dioxide 24 mmol/L (22-30); Chloride 106 mmol/L (98-107); Estimated CRCL calculation 84 ml/min; Estimated Glomerular Filt Rate > 60; Glucose 231 mg/dL (65-110); Potassium 3.8 mmol/L (3.4-5.0); Sodium 137 mmol/L (137-145)
[2021-03-22 09:58] VITALS: O2SAT 98
[2021-03-22 11:49] LABS: Glucose Point of Care 242 mg/dl (65-105)
--- NOTE | 2021-03-22 11:56 | PM.IMPN ---
Progress Note: A&P Assessment and Plan (1) Pneumonia: Code(s): J18.9 - Pneumonia, unspecified organism Status: Acute Assessment and Plan: CT A/P-->bilateral lower lobe pneumonia WBC improved Continue Levaquin, recently treated with cephalosporin Follow BC (2) Delirium: Code(s): R41.0 - Disorientation, unspecified Status: Acute (3) Altered mental status: Qualifiers: Altered mental status type: unspecified Qualified Code(s): R41.82 - Altered mental status, unspecified Code(s): R41.82 - Altered mental status, unspecified Status: Acute Assessment and Plan: Resolved Likely due to high fever (4) Fever: Code(s): R50.9 - Fever, unspecified Status: Acute Assessment and Plan: Resolved Additional Plan # Recent UTI UA with RBCs but no WBC present follow urine culture recently treated with Ceftin as # Diabetes mellitus on insulin resume home medication sliding scale insulin # Multiple sclerosis on interferon # GERD # Former smoker # COVID vaccinated # DVT prophylaxis SCDs # Full code Subjective Date/time seen: 03/22/21 11:56 Pt seem and evaluated; labs, vs and diagnostic reports reviewed; pt states that she feel tired this morning; afebrile; denies cough, SOB, CP Review of Systems Review of Systems: All systems reviewed & are unremarkable except as noted in HPI and below Exam Const: General: no acute distress, alert and awake Orientation/consciousness: patient oriented x3 HENMT: Head: normocephalic and atraumatic Mouth: Yes Normal oral and palatal mucosa present Eyes: EOM: EOMs intact bilaterally Neck: Neck: full ROM, trachea midline and no JVD Resp: Effort & Inspection: normal respiratory effort Auscultation: clear to auscultation bilaterally and diminished lung sounds (bases) Cardio: Jugular venous distension: no JVD Rate: regular rate Rhythm: regular rhythm Heart sounds: S1 normal heart sound present and S2 normal heart sound present GI: Inspection: normal to inspection GI Palp: Yes Soft to palpation Auscultation: normal bowel sounds : General: Yes no CVA tenderness Skin: General skin exam: normal color Rashes: no rashes Neuro: General: patient oriented x3 and CN's II-XI intact bilaterally Cranial nerves: Yes Equal, round and reactive pupils present Speech: normal speech Psych: Appearance: grossly normal Affect: normal affect Judgement: Good judgement present (Psych) Objective Data Vital Signs Vital Signs: Vital Signs - 24 hr 03/21/21 14:00 03/21/21 21:10 03/22/21 05:11 Temperature 37.1 C 36.3 C L 36.1 C L Pulse Rate 80 79 86 Respiratory Rate 16 16 16 Blood Pressure 99/62 L 121/65 132/73 Pulse Oximetry 98 100 100 03/22/21 08:06 03/22/21 09:58 Temperature 36.0 C L Pulse Rate 66 Respiratory Rate 16 Blood Pressure 126/76 Pulse Oximetry 99 98 Intake/Output Intake/Output: Intake & Output 03/19/21 03/20/21 03/21/21 03/22/21 23:59 23:59 23:59 23:59 Intake Total 4230 2850 Output Total 003 267 3682 Balance -400 3830 1450 Meds/Results Medications: Active Medications Generic Name Dose Route Start Last Admin Trade Name Freq PRN Reason Stop Dose Admin Alendronate Sodium 70 mg 03/21/21 06:30 03/21/21 09:45 Alendronate Sodium 70 Mg Tablet PO 70 mg Wolf@0630 ULCIO Administration Dextrose 12.5 gm 03/21/21 05:41 Dextrose 50% 25 Gm/50 Ml Syringe IV PUSH PRN PRN Hypoglycemia Protocol Glucagon 1 mg 03/21/21 05:41 Glucagon For Inj 1 Mg Vial IM PRN PRN Hypoglycemia Protocol Glucose 15 gm 03/21/21 05:41 Glucose Oral Gel 15 Gm Of Glucse In 37.5 Gm Tube PO PRN PRN Hypoglycemia Protocol Sodium Chloride 1,000 mls @ 125 mls/hr 03/21/21 02:35 03/22/21 10:37 Normal Saline Iv IV CONT 125 mls/hr .Q8H LUCIO Administration Dextrose 1,000 mls @ 100 mls/hr 03/21/21 05:41 Dextrose 5% 1,000 Ml IVPB PRN PRN
[2021-03-22 14:00] VITALS: BP 135/67; PULSE 76; RESP 16; TEMP 36.2; O2SAT 99
[2021-03-22 16:28] LABS: Glucose Point of Care 199 mg/dl (65-105)
[2021-03-22 20:00] VITALS: PULSE 68; RESP 16; O2SAT 100
[2021-03-22] MEDS: INSULIN GLARGINE (*BKC) 100 UNITS/ML 18 UNITS SUB-Q (20:02)
[2021-03-22 20:03] VITALS: BP 149/64; PULSE 68; RESP 16; TEMP 36.1; O2SAT 100
[2021-03-22] MEDS: SIMVASTATIN 20 MG TABLET 40 MG PO (20:10)
[2021-03-22 20:41] LABS: Glucose Point of Care 238 mg/dl (65-105)
[2021-03-22] MEDS: ONDANSETRON INJ 4 MG/2 ML VIAL IV PUSH (22:07)
[2021-03-23 03:52] VITALS: BP 143/61; PULSE 70; RESP 16; TEMP 35.9; O2SAT 100
[2021-03-23] MEDS: SODIUM CHLORIDE 0.9% IV 1,000 ML 125 ML IV CONT (05:24)
--- NOTE | 2021-03-23 06:51 | PM.IMPN ---
Progress Note: A&P Time Spent With Patient Time with patient: 25 - 35 minutes Subjective Date/time seen: 03/23/21 06:51 Interval history: * Review of Systems Review of Systems: All systems reviewed & are unremarkable except as noted in HPI and below Exam Narrative: General: *-year-old * laying flat in bed. Appears comfortable. In no acute distress. Skin: No jaundice or cyanosis. Good skin turgor. Neck: Full range of motion. Supple. Nontender. Respiratory: Lungs are clear to auscultation bilaterally. No bony chest wall tenderness. Cardiovascular: The heart has a regular rate and rhythm without murmur. No carotid bruits. Lower extremities: No lower extremity edema. Distal pulses are easily palpated. No calf tenderness to palpation. Gastrointestinal: The abdomen is soft, nontender and nondistended with active bowel sounds. Psychiatric: Lucid and oriented. Memory intact. Neurologic: No focal deficits. Speech is clear. No facial drooping. Objective Data Vital Signs Vital Signs: Vital Signs - 24 hr 03/22/21 08:06 03/22/21 09:58 03/22/21 14:00 Temperature 96.8 F L 97.1 F L Pulse Rate 66 76 Respiratory Rate 16 16 Blood Pressure 126/76 135/67 Pulse Oximetry 99 98 99 03/22/21 20:00 03/22/21 20:03 03/23/21 03:52 Temperature 96.9 F L 96.6 F L Pulse Rate 68 68 70 Respiratory Rate 16 16 16 Blood Pressure 149/64 H 143/61 H Pulse Oximetry 100 100 100 Intake/Output Intake/Output: Intake & Output 03/20/21 03/21/21 03/22/21 03/23/21 23:59 23:59 23:59 23:59 Intake Total 4230 4210 2200 Output Total 251 511 9240 2000 Balance -400 3830 1110 200 Meds/Results Medications: Active Medications Generic Name Dose Route Start Last Admin Trade Name Freq PRN Reason Stop Dose Admin Alendronate Sodium 70 mg 03/21/21 06:30 03/21/21 09:45 Alendronate Sodium 70 Mg Tablet PO 70 mg Wolf@0630 LUCIO Administration Dextrose 12.5 gm 03/21/21 05:41 Dextrose 50% 25 Gm/50 Ml Syringe IV PUSH PRN PRN Hypoglycemia Protocol Glucagon 1 mg 03/21/21 05:41 Glucagon For Inj 1 Mg Vial IM PRN PRN Hypoglycemia Protocol Glucose 15 gm 03/21/21 05:41 Glucose Oral Gel 15 Gm Of Glucse In 37.5 Gm Tube PO PRN PRN Hypoglycemia Protocol Sodium Chloride 1,000 mls @ 125 mls/hr 03/21/21 02:35 03/23/21 05:24 Normal Saline Iv IV CONT 125 mls/hr .Q8H LUCIO Administration Dextrose 1,000 mls @ 100 mls/hr 03/21/21 05:41 Dextrose 5% 1,000 Ml IVPB PRN PRN Hypoglycemia Protocol Levofloxacin/Dextrose 750 mg in 150 mls @ 100 mls/hr 03/21/21 21:00 03/22/21 20:10 Levaquin 750 Mg/D5w 150 Ml IVPB 100 mls/hr Q24H LUCIO Administration Insulin Aspart 2 - 5 units 03/21/21 08:00 03/22/21 17:05 Insulin Aspart (*Bkc) 100 Units/Ml SUB-Q Not Given TIDWM [facility] Protocol Insulin Glargine 18 units 03/21/21 21:00 03/22/21 20:02 Insulin Glargine (*Bkc) 100 Units/Ml SUB-Q 18 units HS LUCIO Administration Modafinil 100 mg 03/21/21 09:00 03/22/21 08:08 Modafinil (*Crx) 100 Mg Tablet PO 100 mg QAM LUCIO Administration Morphine Sulfate 4 mg 03/21/21 02:32 Morphine Sulfate (*Crx) 4 Mg/Ml Inj IV PUSH Q2H PRN Pain Rated 7-10 Non-Formulary Medication 30 mcg 03/21/21 09:00 Interferon Beta-1a IM 04/20/21 08:59 WEEKLY [facility] Ondansetron HCl 4 mg 03/22/21 21:47 03/22/21 22:07 Ondansetron Inj 4 Mg/2 Ml Vial IV PUSH 4 mg Q6H PRN Administration Nausea And Vomiting Pantoprazole Sodium 40 mg 03/21/21 09:00 03/22/21 08:08 Pantoprazole 40 Mg Tablet PO 40 mg QAM LUCIO Administration Saccharomyces Boulardii 250 mg 03/21/21 09:00 03/22/21 17:06 Saccharomyces Boulardii 250 Mg Capsule PO 250 mg BID LUCIO Administration Simvastatin 40 mg 03/21/21 21:00 03/22/21 20:10 Simvastatin 20 Mg Tablet PO 40 mg HS LUCIO Administration Sitagliptin Phosphate 100 mg 03/21/21 09
[2021-03-23 06:53] LABS: Glucose Point of Care 206 mg/dl (65-105)
[2021-03-23] MEDS: PANTOPRAZOLE 40 MG TABLET PO (08:01)
[2021-03-23] MEDS: SACCHAROMYCES BOULARDII 250 MG CAPSULE PO (08:01)
[2021-03-23] MEDS: INSULIN ASPART (*BKC) 100 UNITS/ML SUB-Q ×2 (08:02→12:01)
[2021-03-23 08:05] VITALS: O2SAT 98
[2021-03-23] MEDS: modafiniL (*CRX) 100 MG TABLET PO (08:07)
[2021-03-23 09:43] VITALS: BP 108/54; PULSE 66; RESP 18; TEMP 36; O2SAT 98
[2021-03-23 11:37] LABS: Glucose Point of Care 225 mg/dl (65-105)
--- NOTE | 2021-03-23 13:39 | PM.DS ---
DS: Admitting Diagnosis Discharge Date 03/23/21 Admitting Diagnosis AMS/ Fevers DS: Discharge Diagnosis Discharge Diagnosis (1) Sepsis: Qualifiers: Sepsis acute organ dysfunction status: unspecified Sepsis type: sepsis due to unspecified organism Qualified Code(s): A41.9 - Sepsis, unspecified organism Code(s): A41.9 - Sepsis, unspecified organism Status: Acute Assessment and Plan: Patient is a 60-year-old woman with a history of diabetes, who presented to emergency room with fevers, altered mental status, and the patient's friend found her at home in this state. EMS was called and she was taken to the hospital for further evaluation. Vitals show elevated blood pressure 182/82, tachycardic 123 beats per minute, normal oxygenation and and respiratory rate, fever 100.3. Initial labs showed leukocytosis at 10,200, elevated neutrophils at 86%, normal coag panel. Sodium slightly low at 135. Normal renal function, elevated glucose at 200. Normal lactic acid. Normal LFTs. Elevated CRP at 8.8. Urinalysis 1+ glucose, 3+ blood, rbc's 11-20. CT head showed no acute intracranial findings, chronic age-related findings. CT chest abdomen pelvis showed Mild dependent basilar intralobular septal thickening, atelectasis an/or mild pulmonary edema. Renal peripelvic cysts. No nephrolithiasis, hydronephrosis or acute intra-abdominal findings. Patient was admitted to the hospital meeting sepsis criteria and started on IV Levaquin and IV fluids. Initially patient was thought to have pneumonia because her urinalysis was normal. The patient informed me that on 03/15/2021 she went to her primary care provider's office and had a urinalysis completed which just showed growth of >100,000 Klebsiella oxytoca and ESBL. I called the patient's primary care provider and they did not have the sensitivity report and the patient was getting better on IV Levaquin. She has been afebrile for 48 hours. She is feeling completely normal without any symptoms at this time. I will discharge her with a total of 10 days of Levaquin and a probiotic. I told the patient to follow-up with her primary care provider for further evaluation 1 week. The patient does have a follow-up appointment with her urologist due to her frequent UTIs on 03/25/2021, which I told her to keep. Otherwise patient is feeling well at this time and stable for discharge. The patient understands agrees the plan all questions answered. (2) UTI (urinary tract infection): Code(s): N39.0 - Urinary tract infection, site not specified Status: Acute (3) Metabolic encephalopathy: Code(s): G93.41 - Metabolic encephalopathy Status: Acute (4) Insulin dependent diabetes mellitus: Status: Acute DS: Summary Hospital Course Hospital Course: See above Status at Discharge Cognitive/behavioral status at discharge: Stable, improved. Time Spent with Patient Time attestation: Total time spent providing and/or coordinating discharge services: 42 Time spent: Greater than 30 minutes Exam Narrative: General: 60-year-old woman sitting up in bed on her cellphone. Appears comfortable. In no acute distress. Skin: No jaundice or cyanosis. Good skin turgor. Neck: Full range of motion. Supple. Respiratory: Lungs are clear to auscultation bilaterally. No bony chest wall tenderness. Cardiovascular: The heart has a regular rate and rhythm without murmur. Lower extremities: No lower extremity edema. Distal pulses are easily palpated. No calf tenderness to palpation. Gastrointestinal: The abdomen is soft, nontender and nondistended with active bowel sounds. Psychiatric: Lucid and oriented. Memory intact. Neurologic: No focal deficits. Speech is clear. No facial drooping. DS: Data Data Completed and Pending Labs on day of discharge: Labs from last 24 hours 03/23/21 03/23/21 03/22/21 11:35 06:47 20:00 POC
[2021-03-23 13:59] VITALS: BP 132/66; PULSE 82; RESP 16; TEMP 36.4; O2SAT 99
--- NOTE | 2021-03-23 14:37 | PC.NURSE ---
On 03/23/21, the student, Sunny Salas, provided care and completed [facility] documentation on this patient. I have reviewed the student's documentation and agree with the findings.
--- NOTE | 2021-04-01 09:25 | PC.NURSE ---
Blood cx are negative.
== END 2021-03-23 15:15 | disposition home or self-care (01) ==
LOC: ANHED 03-21 02:35 → ANH2MED 03-21 03:34
PROVIDERS: Emergency Medicine; Nurse Practitioner Adult Health; Physician Assistant; Admitting Provider Internal Medicine; Emergency Provider Emergency Medicine; Visit Provider Internal Medicine
DX: N39.0 Urinary tract infection, site not specified (principal); A41.9 Sepsis, unspecified organism; G93.41 Metabolic encephalopathy; G35 Multiple sclerosis; E11.9 Type 2 diabetes mellitus without complications; E78.5 Hyperlipidemia, unspecified; K21.9 Gastro-esophageal reflux disease without esophagitis; Z87.891 Personal history of nicotine dependence; Z79.4 Long term (current) use of insulin
CPT/HCPCS: 36415; 36600; 51701; 70450; 71250; 74176; 80048; 80053; 81001; 82375; 82805; 82948; 83050; 83605; 85025; 85027; 85610; 85730; 86140; 87040; 93005; 96361; 96365; 96366; 96367; 96375; 96376; 97161; 97165; 99285; A9270; G0378; J0131; J1815; J1956; J2405; J7030; J7120

== ENCOUNTER 2023-06-20 12:11 | Emergency (ER) | payer MEDICARE, SELFPAY ==
[2023-06-20 12:22] VITALS: BP 135/92; PULSE 72; RESP 16; TEMP 36.1; O2SAT 98
--- NOTE | 2023-06-20 12:57 | ED.WOUNDLAC ---
HPI - Wound/Laceration General Chief Complaint: Wound/Laceration Stated Complaint: cut left hand Time Seen by Provider: 06/20/23 12:57 Source: patient Mode of arrival: ambulatory Limitations: no limitations History of Present Illness HPI narrative: 62-year-old female presents with complaint of laceration to palm of left hand. Patient was cleaning out trash can became distracted by her dog and cut herself with a can. Denies foreign body. Unsure of last tetanus. Range of motion and distal neurovascularly intact to left hand. Patient also requesting refill for blood sugar testing strips. Does not have appoint with her primary care physician until June. States that she has not given herself insulin for several days due to testing strips. Reports nausea, no other symptoms. All systems reviewed and negative except as noted above. Related Data Home Medications Medication Instructions Recorded Confirmed insulin glargine 100 unit/mL (3 18 unit subcut HS 02/25/21 06/20/23 mL) subcutaneous pen (Lantus Solostar U-100 Insulin) interferon beta-1a 30 mcg/0.5 mL 30 mcg IM WEEKLY 02/25/21 06/20/23 intramuscular syringe lansoprazole 30 mg capsule,delayed 30 mg PO DAILY 02/25/21 06/20/23 release simvastatin 40 mg tablet 40 mg PO HS 02/25/21 06/20/23 sitagliptin phosphate 100 mg 100 mg PO DAILY 02/25/21 06/20/23 tablet (Januvia) alendronate 70 mg tablet 70 mg PO DAILY 03/21/21 06/20/23 insulin aspart U-100 100 unit/mL See Rx Instructions .Route .COMPLEX 03/21/21 06/20/23 (3 mL) subcutaneous pen (Novolog FlexPen U-100 Insulin aspart) modafinil 100 mg tablet (Provigil) 100 mg PO DAILY 03/21/21 06/20/23 blood sugar diagnostic (OneTouch 06/20/23 06/20/23 Verio test strips) Allergies Allergy/AdvReac Type Severity Reaction Status Date / Time mannitol [From Reclast] Allergy Severe Swelling Verified 06/20/23 12:36 water for injection,sterile Allergy Severe Swelling Verified 06/20/23 12:36 [From Reclast] zoledronic acid Allergy Severe Swelling Verified 06/20/23 12:36 [From Reclast] Penicillins Allergy Intermediate Rash Verified 06/20/23 12:36 Review of Systems Review of Systems: CONSTITUTIONAL: Denies fever, chills, or sweats. EYES: Denies visual changes, redness, or discharge. ENT: Denies rhinorrhea, congestion, sore throat, or otalgia. CARDIOVASCULAR: Denies chest pain, palpitations, or edema. RESPIRATORY: Denies cough or dyspnea. GASTROINTESTINAL: Denies abdominal pain, nausea, vomiting, or diarrhea. GENITOURINARY: Denies dysuria or hematuria. SKIN: Denies rash or itching. Reports laceration to palm of left hand. MUSCULOSKELETAL: Denies back pain, joint pain, or myalgia. NEUROLOGIC: Denies headache, numbness, or weakness. PSYCHIATRIC: Denies anxiety or depression. All other systems reviewed are negative, except as documented in HPI. [facility] Family History Family History (Updated 03/21/21 @ 04:40 by Mago Ugalde RN) Mother Diabetes mellitus Social History Social History Smoking packs per day: 1 Smoking cigarettes per day: 20.0 Years smoked: 1 Smoking pack-years: 1.00 Smoking status: Former smoker Tobacco type: cigarettes Alcohol intake: never Substance use: never Spiritual care concerns: No Comments At time of signature, agree with nursing past medical, surgical, social and family history. There is no relevant family history pertinent to the presenting complaint. Exam Narrative: GENERAL: This is a well-nourished, well-developed patient, in no apparent distress. HEAD: normocephalic, atraumatic. EYES: PERRL. Sclera clear/white. Vision is grossly intact. EARS: External ears normal NOSE: External nose normal NECK: Neck supple, non-tender without lymphadenopathy, masses or thyromegaly. CARDIOVASCULAR: Regular rate and rhythm without murmurs, gallops, or rubs. RESPIRATORY: Clear to auscultation. Breath sounds equal bilaterally. No wheezes, rales, or rho
[2023-06-20] MEDS: TETANUS,DIPHTHERIA,AC PERTUSSIS ADULT (0.5 ML) BOOSTRIX IM (13:12)
[2023-06-20 13:17] LABS: Glucose Point of Care 438 mg/dl (65-105)
== END 2023-06-20 13:30 | disposition home or self-care (01) ==
PROVIDERS: Emergency Provider Nurse Practitioner Family
DX: S61.412A Laceration without foreign body of left hand, initial encounter (principal); W45.8XXA Other foreign body or object entering through skin, initial encounter; E11.65 Type 2 diabetes mellitus with hyperglycemia; Z79.4 Long term (current) use of insulin; Z23 Encounter for immunization; G35 Multiple sclerosis; K21.9 Gastro-esophageal reflux disease without esophagitis; M81.0 Age-related osteoporosis without current pathological fracture; Z98.42 Cataract extraction status, left eye; Z98.41 Cataract extraction status, right eye; Z87.891 Personal history of nicotine dependence
CPT/HCPCS: 12002; 82948; 90471; 90715; 99213; G0463

== ENCOUNTER 2023-06-24 12:02 | Emergency (ER) | payer MEDICARE, SELFPAY ==
[2023-06-24 12:21] VITALS: BP 100/65; PULSE 94; RESP 16; TEMP 36.7; O2SAT 99
--- NOTE | 2023-06-24 13:29 | ED.WOUNDLAC ---
HPI - Wound/Laceration General Chief Complaint: Wound/Laceration Stated Complaint: suture removal Time Seen by Provider: 06/24/23 13:29 Source: patient Mode of arrival: ambulatory Limitations: no limitations History of Present Illness HPI narrative: 62-year-old female presents to have Sutures removed from left hand. Patient thought that had been 10 days since sutures were placed. States she is confused on time line, is really tired and has been dealing with a friend out [place] that is having some issues. Wound healing well. No drainage or redness. All systems reviewed and negative except as noted above. Related Data Home Medications Medication Instructions Recorded Confirmed insulin glargine 100 unit/mL (3 18 unit subcut HS 02/25/21 06/20/23 mL) subcutaneous pen (Lantus Solostar U-100 Insulin) interferon beta-1a 30 mcg/0.5 mL 30 mcg IM WEEKLY 02/25/21 06/20/23 intramuscular syringe lansoprazole 30 mg capsule,delayed 30 mg PO DAILY 02/25/21 06/20/23 release simvastatin 40 mg tablet 40 mg PO HS 02/25/21 06/20/23 sitagliptin phosphate 100 mg 100 mg PO DAILY 02/25/21 06/20/23 tablet (Januvia) alendronate 70 mg tablet 70 mg PO DAILY 03/21/21 06/20/23 insulin aspart U-100 100 unit/mL See Rx Instructions .Route .COMPLEX 03/21/21 06/20/23 (3 mL) subcutaneous pen (Novolog FlexPen U-100 Insulin aspart) modafinil 100 mg tablet (Provigil) 100 mg PO DAILY 03/21/21 06/20/23 blood sugar diagnostic (OneTouch 06/20/23 06/20/23 Verio test strips) Allergies Allergy/AdvReac Type Severity Reaction Status Date / Time mannitol [From Reclast] Allergy Severe Swelling Verified 06/20/23 12:36 water for injection,sterile Allergy Severe Swelling Verified 06/20/23 12:36 [From Reclast] zoledronic acid Allergy Severe Swelling Verified 06/20/23 12:36 [From Reclast] Penicillins Allergy Intermediate Rash Verified 06/20/23 12:36 Review of Systems Review of Systems: CONSTITUTIONAL: Denies fever, chills, or sweats. EYES: Denies visual changes, redness, or discharge. ENT: Denies rhinorrhea, congestion, sore throat, or otalgia. CARDIOVASCULAR: Denies chest pain, palpitations, or edema. RESPIRATORY: Denies cough or dyspnea. GASTROINTESTINAL: Denies abdominal pain, nausea, vomiting, or diarrhea. GENITOURINARY: Denies dysuria or hematuria. SKIN: Patient here for suture removal to left hand. MUSCULOSKELETAL: Denies back pain, joint pain, or myalgia. NEUROLOGIC: Denies headache, numbness, or weakness. PSYCHIATRIC: Denies anxiety or depression. All other systems reviewed are negative, except as documented in HPI. [facility] Family History Family History (Updated 03/21/21 @ 04:40 by Mago Ugalde RN) Mother Diabetes mellitus Social History Social History Smoking packs per day: 1 Smoking cigarettes per day: 20.0 Years smoked: 1 Smoking pack-years: 1.00 Smoking status: Former smoker Tobacco type: cigarettes Alcohol intake: never Substance use: never Spiritual care concerns: No Comments At time of signature, agree with nursing past medical, surgical, social and family history. There is no relevant family history pertinent to the presenting complaint. Exam Narrative: GENERAL: This is a well-nourished, well-developed patient, in no apparent distress. HEAD: normocephalic, atraumatic. EYES: PERRL. Sclera clear/white. Vision is grossly intact. EARS: External ears normal NOSE: External nose normal NECK: Neck supple, non-tender without lymphadenopathy, masses or thyromegaly. CARDIOVASCULAR: Regular rate and rhythm without murmurs, gallops, or rubs. RESPIRATORY: Clear to auscultation. Breath sounds equal bilaterally. No wheezes, rales, or rhonchi. SKIN: warm, Dry, intact with no suspicious lesions or rash, good texture and turgor. laceration to L palm healing well. no redness, warmth, swelling or drainage. NEURO: awake, alert, and oriented to person, place and time. There were n
== END 2023-06-24 13:44 | disposition home or self-care (01) ==
PROVIDERS: Emergency Provider Nurse Practitioner Family
DX: Z48.02 Encounter for removal of sutures (principal); Z87.891 Personal history of nicotine dependence
CPT/HCPCS: 99211; G0463

== ENCOUNTER 2023-06-30 09:38 | Emergency (ER) | payer MEDICARE, SELFPAY ==
[2023-06-30 10:02] VITALS: BP 113/88; PULSE 82; RESP 18; TEMP 36.4; O2SAT 97
--- NOTE | 2023-06-30 10:15 | ED.SKABFB ---
HPI - Skin/Abscess/Foreign Bdy General Chief complaint: Skin/Abscess/Foreign Body Stated complaint: Stitches Removal Time Seen by Provider: 06/30/23 10:15 Source: patient Mode of arrival: ambulatory Limitations: no limitations History of Present Illness HPI narrative: 62-year-old female presented for suture removal. Endorses 6 sutures to the left palm. Took abx. Patient was seen on 06/24, was told the sutures had only been in place for 4 days and was advised to return in 6 days. She denies redness, swelling, drainage, or pain to the site. Related Data Home Medications Medication Instructions Recorded Confirmed insulin glargine 100 unit/mL (3 18 unit subcut HS 02/25/21 06/30/23 mL) subcutaneous pen (Lantus Solostar U-100 Insulin) interferon beta-1a 30 mcg/0.5 mL 30 mcg IM WEEKLY 02/25/21 06/30/23 intramuscular syringe lansoprazole 30 mg capsule,delayed 30 mg PO DAILY 02/25/21 06/30/23 release simvastatin 40 mg tablet 40 mg PO HS 02/25/21 06/30/23 sitagliptin phosphate 100 mg 100 mg PO DAILY 02/25/21 06/30/23 tablet (Januvia) alendronate 70 mg tablet 70 mg PO DAILY 03/21/21 06/30/23 insulin aspart U-100 100 unit/mL See Rx Instructions .Route .COMPLEX 03/21/21 06/30/23 (3 mL) subcutaneous pen (Novolog FlexPen U-100 Insulin aspart) modafinil 100 mg tablet (Provigil) 100 mg PO DAILY 03/21/21 06/30/23 blood sugar diagnostic (OneTouch 06/20/23 06/30/23 Verio test strips) aspirin 81 mg chewable tablet 81 mg PO DAILY 06/30/23 06/30/23 Allergies Allergy/AdvReac Type Severity Reaction Status Date / Time mannitol [From Reclast] Allergy Severe Swelling Verified 06/30/23 09:59 water for injection,sterile Allergy Severe Swelling Verified 06/30/23 09:59 [From Reclast] zoledronic acid Allergy Severe Swelling Verified 06/30/23 09:59 [From Reclast] Penicillins Allergy Intermediate Rash Verified 06/30/23 09:59 Review of Systems Review of Systems: CONSTITUTIONAL: Denies body aches, fever, chills, or sweats. EYES: Denies visual changes, redness, or discharge. ENT: Denies rhinorrhea, congestion CARDIOVASCULAR: Denies chest pain, palpitations, or edema. RESPIRATORY: Denies cough or dyspnea. GASTROINTESTINAL: Denies abdominal pain, nausea, vomiting, or diarrhea. SKIN: reports lac with sutures MUSCULOSKELETAL: Denies back pain, joint pain, or myalgia. NEUROLOGIC: Denies headache, numbness, tingling, or weakness. PMFSH Family History Family History Mother Diabetes mellitus Social History Social History Smoking packs per day: 1 Smoking cigarettes per day: 20.0 Years smoked: 1 Smoking pack-years: 1.00 Smoking status: Former smoker Tobacco type: cigarettes Alcohol intake: never Substance use: never Spiritual care concerns: No Comments At time of signature, I have reviewed and agree with nursing past medical, surgical, social and family history unless otherwise noted. Please see nursing chart for further information. There is no relevant family history pertinent to the presenting complaint Exam Narrative: GENERAL: Well-appearing HEAD: Normocephalic, atraumatic. EYES: conjunctivae clear, and EOMI. ENT: Mucous membranes moist. Oropharynx without edema, erythema or lesions. NECK: Supple. No lymphadenopathy CHEST: Clear to auscultation. HEART: Regular rate and rhythm. SKIN: Warm, dry. approx 2.5cm linear lac to left palm [address], skin dry, no apparent infection. NEURO: Alert and oriented x3. Course Course Emergency Course: Patient is aware of diagnosis, understands and agrees to treatment plan. Anticipatory guidance given. Patient agrees to follow-up as directed and is aware of reasons to seek care at the emergency department. Portions of this record may have been created with voice recognition software Level of Care: [facility]
== END 2023-06-30 10:47 | disposition home or self-care (01) ==
PROVIDERS: Emergency Provider Nurse Practitioner Family
DX: S61.412D Laceration without foreign body of left hand, subsequent encounter (principal); X58.XXXD Exposure to other specified factors, subsequent encounter; F17.210 Nicotine dependence, cigarettes, uncomplicated; G35 Multiple sclerosis; K21.9 Gastro-esophageal reflux disease without esophagitis; E11.9 Type 2 diabetes mellitus without complications; M81.0 Age-related osteoporosis without current pathological fracture
CPT/HCPCS: 99211; G0463

== ENCOUNTER 2023-07-26 15:33 | Emergency (ER) | payer MEDICARE, SELFPAY ==
[2023-07-26 15:45] VITALS: BP 121/71; PULSE 75; RESP 16; TEMP 37.2; O2SAT 97
[2023-07-26 15:49] VITALS: BP 121/71; PULSE 75; RESP 16; TEMP 37.2; O2SAT 97
--- NOTE | 2023-07-26 15:57 | ED.GENADULT ---
HPI - General Adult General Chief complaint: Skin/Abscess/Foreign Body Stated complaint: recheck left hand Source: patient, RN notes reviewed and old records reviewed Mode of arrival: ambulatory Limitations: no limitations History of Present Illness HPI narrative: 62-year-old female presents to [facility] for wound check laceration to left hand that occurred at the end of May. Patient had sutures removed here on June 24, 2023. Patient states has also seen her PCP but is worried the laceration is not healing well, and may be infected. Related Data Home Medications Medication Instructions Recorded Confirmed insulin glargine 100 unit/mL (3 18 unit subcut HS 02/25/21 07/26/23 mL) subcutaneous pen (Lantus Solostar U-100 Insulin) interferon beta-1a 30 mcg/0.5 mL 30 mcg IM WEEKLY 02/25/21 07/26/23 intramuscular syringe lansoprazole 30 mg capsule,delayed 30 mg PO DAILY 02/25/21 07/26/23 release simvastatin 40 mg tablet 40 mg PO HS 02/25/21 06/30/23 sitagliptin phosphate 100 mg 100 mg PO DAILY 02/25/21 07/26/23 tablet (Januvia) alendronate 70 mg tablet 70 mg PO DAILY 03/21/21 07/26/23 insulin aspart U-100 100 unit/mL See Rx Instructions .Route .COMPLEX 03/21/21 07/26/23 (3 mL) subcutaneous pen (Novolog FlexPen U-100 Insulin aspart) modafinil 100 mg tablet (Provigil) 100 mg PO DAILY 03/21/21 06/30/23 blood sugar diagnostic (OneTouch 06/20/23 06/30/23 Verio test strips) aspirin 81 mg chewable tablet 81 mg PO DAILY 06/30/23 07/26/23 Allergies Allergy/AdvReac Type Severity Reaction Status Date / Time mannitol [From Reclast] Allergy Severe Swelling Verified 07/26/23 15:45 water for injection,sterile Allergy Severe Swelling Verified 07/26/23 15:45 [From Reclast] zoledronic acid Allergy Severe Swelling Verified 07/26/23 15:45 [From Reclast] Penicillins Allergy Intermediate Rash Verified 07/26/23 15:45 Review of Systems Constitutional: Constitutional: Reports no additional constitutional complaints, Denies body ache(s), Denies chills, Denies fatigue, Denies fever(s) and Denies headache(s) Eyes: Eyes: Reports no additional eye complaints and Denies blurry vision ENT: Reports system reviewed and no additional complaints, except as documented, Denies vertigo, Denies dizziness, Denies ear discharge, Denies otalgia, Denies facial pain, Denies headache(s), Denies nasal congestion, Denies nasal discharge, Denies sinus pain, Denies sinus pressure and Denies sore throat Cardiovascular: Cardiovascular: Reports no additional cardiovascular complaints, Denies chest pain, Denies chest pain at rest, Denies rapid heart rate and Denies dyspnea Respiratory: Respiratory: Reports no additional respiratory complaints, Denies chest congestion, Denies cough, Denies pain on inspiration, Denies pain with cough and Denies dyspnea Gastrointestinal: Gastrointestinal: Denies abdominal pain, Denies diarrhea, Denies nausea and Denies vomiting Integumentary/Breasts: Skin/Breast: Denies rash Comments: Wound check laceration to left hand Neurologic: Reports system reviewed and no additional complaints, except as documented, Denies vertigo, Denies dizziness and Denies headache(s) Endocrine: Endocrine: Denies fatigue PMFSH Family History Family History Mother Diabetes mellitus Social History Social History Smoking packs per day: 1 Smoking cigarettes per day: 20.0 Years smoked: 1 Smoking pack-years: 1.00 Smoking status: Former smoker Tobacco type: cigarettes Alcohol intake: never Substance use: never Spiritual care concerns: No Comments At the time of my signature, I reviewed and agree with the nursing past medical, surgical, social, and family history. There is no relevant family history pertinent to the patient complaint. Exam Const: General: cooperative, healthy appearin
== END 2023-07-26 16:07 | disposition home or self-care (01) ==
PROVIDERS: Emergency Provider Registered Nurse
DX: Z48.01 Encounter for change or removal of surgical wound dressing (principal); Z87.891 Personal history of nicotine dependence; G35 Multiple sclerosis; K21.9 Gastro-esophageal reflux disease without esophagitis; M17.0 Bilateral primary osteoarthritis of knee; M81.0 Age-related osteoporosis without current pathological fracture; E11.9 Type 2 diabetes mellitus without complications; Z98.42 Cataract extraction status, left eye; Z98.41 Cataract extraction status, right eye
CPT/HCPCS: 99213; G0463

== ENCOUNTER 2025-05-23 17:20 | Emergency (ER) | payer MEDICARE, SELFPAY ==
--- NOTE | ~2025-05-23 | XR_ITS ---
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 Findings: Postsurgical changes noted in the distal femur and proximal tibia, no acute fracture is identified. There are severe tricompartmental degenerative changes with narrowing of the joint space and osteophytosis with calcified loose bodies and large joint effusion. Soft tissues unremarkable. Impression: No acute fracture or malalignment. Reviewed, dictated and finalized at location P. N CLEANER AND TRANSFER OPERATOR Impression: No acute fracture or malalignment.
[2025-05-23 17:31] VITALS: BP 109/54; PULSE 85; RESP 20; TEMP 36.2; O2SAT 100
--- NOTE | 2025-05-23 17:33 | ED_ITS ---
HPI - Extremity Injury (Lower) General Chief Complaint: Extremity Injury, Lower Stated Complaint: Fall; Left knee sore Time Seen by Provider: 05/23/25 17:33 Source: patient, RN notes reviewed and old records reviewed Mode of arrival: ambulatory Limitations: no limitations History of Present Illness HPI Narrative: 64 year old female who presents to express care with complaints of fall with injury to her left knee which occurred on Monday when she slipped on her deck when it was slippery and fell directly onto her left knee.swelling pain, ice and heat and also Advil and Aleve for pain. Patient reports has had injury to her left knee in past from down hill skiing and had to have ligament repair. Patient reports that her orthopedic Dr Hinkle told her to go get x-ray of her knee MD complaint: knee injury Onset (ago): day(s) (Monday 4 days ago) Type of Injury: blunt Place: home Treatments prior to arrival: cold therapy, heart therapy and NSAIDS Related Data Home Medications ?Medication ?Instructions ?Recorded ?Confirmed ?Last Taken ?Type insulin glargine 100 unit/mL (3 18 unit subcut HS 08/1604/22/25 02/24/21 21:00 History mL) subcutaneous pen (Lantus Solostar U-100 Insulin) lansoprazole 30 mg capsule,delayed 30 mg PO DAILY 08/1604/22/25 02/24/21 07:00 History release simvastatin 40 mg tablet 40 mg PO HS 02/25/21 5 02/24/21 21:00 History sitagliptin phosphate 100 mg 100 mg PO DAILY 02/25/21 04/22/25 02/25/21 07:00 History tablet (Januvia) alendronate 70 mg tablet 70 mg PO DAILY 03/21/2103/27 Unknown History insulin aspart U-100 100 unit/mL See Rx Instructions . Route .COMPLEX 03/21/21 04/22/25 Unknown History (3 mL) subcutaneous pen (Novolog FlexPen U-100 Insulin aspart) modafinil 100 mg tablet (Provigil) 100 mg PO DAILY 04/22/25 Unknown History blood sugar diagnostic (OneTouch 06/20/23 04/22/25 Un known History Verio test strips) aspirin 81 mg chewable tablet 81 mg PO DAILY 06/30/23 04/22/25 Unknown History tirzepatide 7.5 mg/0.5 mL 7.5 mg subcut WEEKLY 5 04/22/25 Unknown History subcutaneous pen injector (Moungiuseppero) Allergies Allergy/AdvReac Type Severity Reaction Status Date / Time mannitol (From Reclast) Allergy Severe Swelling Verified 05/23/25 17:25 water for injection,sterile Allergy Severe Swelling Verified 05/23/25 17:25 (From Reclast) zoledronic acid (From Allergy Severe Swelling Verified 05/23/25 17:25 Reclast) Penicillins Allergy Intermediate Rash Verified 05/23/25 17:25 Review of Systems Review of Systems: CONSTITUTIONAL: Denies fever, chills, or sweats. EYES: Denies visual changes, redness, or discharge. ENT: Denies rhinorrhea, congestion, sore throat, or otalgia. CARDIOVASCULAR: Denies chest pain, palpitations, or edema. RESPIRATORY: Denies cough or dyspnea. GASTROINTESTINAL: Denies abdominal pain, nausea, vomiting, or diarrhea. GENITOURINARY: Denies dysuria or hematuria. SKIN: Denies rash or itching. MUSCULOSKELETAL: Denies back pain,reports pain and swelling to the left knee with most pain with activity and ambulation and greatest area of discomfort to medial aspect of knee, or myalgia. NEUROLOGIC: Denies headache, numbness, or weakness. PSYCHIATRIC: Denies anxiety or depression. All systems reviewed & are unremarkable except as noted in HPI and below PMFSH Past Medical History Medical History (Updated 05/25/25 @ 05:35 by Sammi Palencia APRN) Sepsis Arthritis Osteoporosis Multiple sclerosis Insulin dependent diabetes mellitus Pneumonia UTI (urinary tract infection) Surgical History Surgical History (Updated 05/25/25 @ 05:21 by Sammi Palencia APRN) History of cataract surgery bilateral Hx of appendectomy History of knee surgery right and left knees, no replacements Family History Family History Mother Diabetes mellitus Social History Social History Smoking packs per day: 1 Smoking cigarettes per day: 20.0 Years smoked: 1 Smoking pack-years: 1.00 Smoking status: Former smoker Tobacco type: cigarettes Alcohol intake: never Substance use: never Lack of Transportation: No Lack of Food: Never True Current Housing: I Have Housing Concerned About Future Housing: No Difficulty Paying Gas/Electric Bills: YES Difficulty Paying for Meds: No Currently Unemployed: No Education: Bachelor's Degree Difficulty w/ Childcare or Family Care: No Spiritual care concerns: No Comments At time of signature, agree with nursing past medical, surgical, social and family history. There is no relevant family history pertinent to the presenting complaint Exam Narrative: GENERAL: Well-appearing, well-nourished, and in no acute distress. HEAD: Normocephalic, atraumatic. EYES: PERRLA and EOMI. ENT: Nares clear, no rhinorrhea or epistaxis. Mucous membranes moist.TM's normal throat pink without exudates NECK: Supple.no lymphadenopathy CHEST: Clear to auscultation. No respiratory distress.SAO2 100% on room air HEART: Regular rate and rhythm. No murmur heard. Normal peripheral pulses. ABDOMEN: Soft, nontender, nondistended, normal active bowel sounds. EXTREMITIES: Normal range of motion. No edema. Exception noted to left knee with some mild edema noted with painful mobility and ambulation after fall Patient reports no pain to knee at rest most noted area of discomfort is medial aspect of left knee, reports she twisted knee and then fell directly onto knee. SKIN: Warm, dry, no rash. NEURO: No focal deficits. Alert and oriented x3. Course Course Emergency Course: Patient is aware of diagnosis, understands and agrees to treatment plan.? Anticipatory guidance given.? Patient agrees to follow-up as directed and is aware of reasons to seek care at the emergency department. Portions of this record may have been created with voice recognition software Level of Care: Express Care Visit Vital Signs Vital signs: Vital Signs Temperature 36.2 C L 05/23/25 17:31 Pulse Rate 85 05/23/25 17:31 Respiratory Rate 20 05/23/25 17:31 Blood Pressure 109/54 L 05/23/25 17:31 Pulse Oximetry 100 05/23/25 17:31 Oxygen Delivery Room Air 05/23/25 17:31 Temperature 36.2 C L 05/23/25 17:31 Pulse Rate 85 05/23/25 17:31 Respiratory Rate 20 05/23/25 17:31 Blood Pressure 109/54 L 05/23/25 17:31 Pulse Oximetry 100 05/23/25 17:31 Oxygen Delivery Room Air 05/23/25 17:31 Reviewed MDM - Extremity Injury (Lower) Differential Diagnosis Differential diagnosis: Likely acute internal derangement of knee and other (knee fracture, contusion left knee, joint effusion left knee, degenerative arthritis left knee) Medical Records Attestation: I reviewed the patient's medical records. 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 large joint effusion left knee Radiologist's impression: [facility] [address] [place] [address] XRay Report Signed Patient: Sita Chao : 1960 MR#: [id number] Age: 64 Acct:[id number] Loc: [facility] ADM Date: 05/23/[address]: Ordering Physician: Sammi Palencia APRN Date of Service: 05/23/25 Procedure(s): XR knee LT min 4V Accession Number(s): [id number] cc: Torin,Shanique; Sammi Palencia 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 Findings: Postsurgical changes noted in the distal femur and proximal tibia, no acute fracture is identified. There are severe tricompartmental degenerative changes with narrowing of the joint space and osteophytosis with calcified loose bodies and large joint effusion. Soft tissues unremarkable. Impression: No acute fracture or malalignment. Reviewed, dictated and finalized at location P. HING MACHINE OPERATOR Please be advised this is a medical document. It is intended for [id number] communication. It is written in medical language and may contain unfamiliar abbreviations or verbiage. Medical documents are intended to carry relevant information, facts as evident, and the clinical opinion of the practitioner at the time of the encounter. This report may have been done utilizing a voice recognition system. Attempts have been made to correct errors. However, there may be uncorrected grammatical, spelling, and recognition errors present. The file time of this note does not necessarily represent the time of service. Dictated By: Olman Che MD 05/23/25 1743 Signed By: <Electronically signed by Olman Che MD in OV> Critical Care Time Critical Care Time Critical Care Time: No Discharge Plan Discharge Clinical Impression: Knee pain, left Qualifiers: Chronicity: acute Qualified Code(s): M25.562 - Pain in left knee Joint effusion of knee Qualifiers: Laterality: left Qualified Code(s): M25.462 - Effusion, left knee Patient Disposition: Home Condition: Stable Instructions: Antibiotic Form, Knee Pain (ED), Swollen Joint (ED) Additional Instructions: Elastic wrap or orthopedic splint as directed for comfort for the next 5-7 day Ibuprofen Advil regularly for the next 2-3 days for the inflammation 400 mg to 600 mg three times daily with food for pain Follow-up with orthopedic surgeon Call Dr Hinkle office on Monday for follow up exam. Follow-up with PCP if further problems or concerns Ice to the area 20-30 minutes 4-6 times a day Elevate above heart If your symptoms persist, change or worsen significantly before you can contact your personal physician then please, without delay, go to the emergency department for further evaluation. Follow-up with PCP in 7-10 days or sooner if needed Patient Language: Citizen Of [place] Prescriptions: No Action mupirocin 2 % ointment 1 applic topical BID 7 Days Qty: 22 0RF (DME) OneTouch Verio test strips Strip MISCELLANEOUS (DME) OneTouch Verio test strips Strip See Rx Instructions .Route Qty: 100 0RF Rx Instructions: As directed aspirin 81 mg Tablet,Chewable 81 mg PO DAILY Mounjaro 7.5 mg/0.5 mL pen injector 7.5 mg subcut WEEKLY Januvia 100 mg tablet 100 mg PO DAILY insulin glargine [Lantus Solostar U-100 Insulin] 100 unit/mL (3 mL) insulin pen 18 unit SUBCUT HS simvastatin 40 mg tablet 40 mg PO HS lansoprazole 30 mg capsule,delayed release(DR/EC) 30 mg PO DAILY alendronate 70 mg tablet 70 mg PO DAILY modafinil [Provigil] 100 mg tablet 100 mg PO DAILY insulin aspart U-100 [Novolog FlexPen U-100 Insulin] 100 unit/mL (3 mL) insuli n pen See Rx Instructions .ROUTE .COMPLEX Rx Instructions: qid sub q blood sugar over 150 150-175=1 unit 176-200=2 unit 201-225=3 unit 226-250=4 unit 251-300=5 unit 301-325=6 unit 326-350=7 unit 351-400=8 unit Saccharomyces boulardii [Florastor] 250 mg capsule 250 mg PO BID Qty: 14 0RF Follow-up/Referrals: UNKNOWN,DOCTOR [Non-Staff] Time of Disposition: 18:24 Quality [place] Coma Scale Eyes: Open Verbal: Oriented and Alert Motor: Follows Commands [place] Coma Total Score: 15
== END 2025-05-23 18:33 | disposition home or self-care (01) ==
PROVIDERS: Emergency Provider Registered Nurse
DX: M25.562 Pain in left knee (principal); M25.462 Effusion, left knee; G35.D Multiple sclerosis, unspecified; E11.9 Type 2 diabetes mellitus without complications; Z79.4 Long term (current) use of insulin; Z79.84 Long term (current) use of oral hypoglycemic drugs; Z79.85 Long-term (current) use of injectable non-insulin antidiabetic drugs; M81.0 Age-related osteoporosis without current pathological fracture; M19.90 Unspecified osteoarthritis, unspecified site; Z87.891 Personal history of nicotine dependence; Z79.82 Long term (current) use of aspirin
CPT/HCPCS: 73564; 99213; G0463